=== PATIENT | female | born 1985 | race Caucasian/White ===

== ENCOUNTER 2015-12-15 11:45 | Inpatient (IN) | payer MEDICAID ==
[~2015-12-15] VITALS: Ht 154.9 cm; Wt 56.8 kg
[~2015-12-15 11:45] MED LIST: GLUCOSAMINE; IBREN600 MG PO; IBU-6600 MG PO; INHALER; LORTAB 5/500 501 TAB PO; NO HOME MEDICATIONS; PRENATAL1 TA1 PO; SENOKOT S 50 MG1 TAB PO
[2016-07-17] VITALS (27 sets, daily range): BP systolic 111–143; BP diastolic 63–90; PULSE 54–116; TEMP 97.3–98.7
[2016-07-17] MEDS ORDERED: PROAIR HFA0.09 MG/AC IH (08:46)
[2016-07-17 09:12] LABS: BASO # 0.1 (0.0-0.2); BASO % 0.6 % (0.0-2.0); EOS # 0.2 (0.0-0.7); GRAN # 6.5 (1.4-6.5); GRAN % 73.2 % (42.2-75.2); HEMATOCRIT 39.3 % (37.0-47.0); HEMOGLOBIN 13.5 g/dl (12.5-16.0); LYMPH # 1.6 (1.2-3.4); LYMPH % 17.9 % (20.0-51.0); MEAN CELL VOLUME 89 fl (80.0-100.0); MEAN CORPUSCULAR HEMOGLOBIN 31 pg (27.0-31.0); MEAN CORPUSCULAR HGB CONC 34 g/dl (33.0-37.0); MEAN PLATELET VOLUME 11.3 fl (7.4-10.4); MONO # 0.5 (0.1-0.6); MONO % 5.7 % (1.7-9.3); PLATELET COUNT 188 K/mm3 (130-400); RED BLOOD COUNT 4.41 M/mm3 (4.10-5.30); REDCELL DISTRIBUTION WIDTH-CV 12.6 % (11.5-14.5); WHITE BLOOD COUNT 8.9 K/mm3 (4.8-10.8)
[2016-07-18 00:30] VITALS: BP 117/71; PULSE 65; TEMP 97.4
[2016-07-18 04:20] VITALS: BP 112/67; PULSE 65; TEMP 97.7
[2016-07-18 09:49] VITALS: BP 115/61; PULSE 65; TEMP 98.5
[2016-07-18] MEDS ORDERED: MOTRIN 800800 MG/TAB PO (10:24)
[2016-07-18] MEDS ORDERED: PERCOCET 325 MG1 TA2 PO (10:24)
== END 2016-07-18 16:15 | disposition home or self-care (01) | DRG 775 ==
LOC: EDSTATUS 06-19 08:17 → LDR 06-19 11:44 → EDSTATUS 06-19 12:30 → LDR 07-17 08:09 → OB 07-17 17:24
PROVIDERS: Obstetrics & Gynecology
PROC: 10E0XZZ Delivery of Products of Conception, External Approach (ICD-10-PCS; principal; 2016-07-17)
PROC: 0UQMXZZ Repair Vulva, External Approach (ICD-10-PCS; 2016-07-17)
PROC: 3E033VJ Introduction of Other Hormone into Peripheral Vein, Percutaneous Approach (ICD-10-PCS; 2016-07-17)
DX: O48.0 Post-term pregnancy (principal); O71.82 Other specified trauma to perineum and vulva; Z3A.40 40 weeks gestation of pregnancy; Z37.0 Single live birth
CPT/HCPCS: J2590; J7120